=== PATIENT | female | born 1960 | race Caucasian/White ===

== ENCOUNTER 2025-01-09 06:32 | Day surgery (SDC) | payer OTHER, SELFPAY | END 2025-01-09 08:49 | disposition home or self-care (01) | LOC: GI 06:32 | PROVIDERS: ATTENDING PHYSICIAN Internal Medicine Gastroenterology; FAMILY PHYSICIAN Internal Medicine | DX: Z12.11 Encounter for screening for malignant neoplasm of colon (principal); D12.3 Benign neoplasm of transverse colon; K62.1 Rectal polyp; Z86.0101 Personal history of adenomatous and serrated colon polyps | CPT/HCPCS: 45380; 88305 ==